=== PATIENT | female | born 1995 ===

== ENCOUNTER 2018-01-17 13:07 | Emergency (ER) | payer OTHER ==
[2018-01-17 13:56] LABS: HCG Qualitative,Urine Negative (Negative)
[2018-01-17 13:57] LABS: Bacteria,Urine 1+ /HPF (Negative); Bilirubin,Urine NEG (Negative); Blood,Urine NEG (Negative); Color,Urine Yellow (Yellow); Mucus,Urine FEW /HPF; Urobilinogen,Urine < 2.0 mg/dL (<2.0)
--- NOTE | 2018-01-17 16:21 | Emergency Department Report ---
HPI - General Chief Complaint: Urogenital-Female Time Seen by Provider: 01/17/18 16:09 - HPI HPI: Room 33 The patient is a 22-year-old female presenting with chief complaint of abdominal pain and back pain. The patient states she is constant cramping/ pressure pain to the suprapubic region for approximately one month. The patient states she's had a thick white vaginal discharge for several months. Patient denies dysuria. The patient is uncertain if she's had a fever. The patient gives her pain is scored 10/10. The patient states she has not sought medical attention about the above complaints. Location: [See above] Duration: [See above] Quality: [See above] Severity: [See above] Modifying factors: [see above] Context: [see above] Mode of transportation: The patient walked from the [place] [facility] Past Medical Hx - Past Medical History Hx Psychiatric Treatment: Yes (depression, OCD,PTSD,BIPOLAR,SCHIZO-EFFECTIVE- SUICIDE ATTEMPT) Additional medical history: premenstral dysphoric disorder - Surgical History Past Surgical History?: No - Family History Family history: no significant - Social History Smoking Status: Never Smoker Substance Use Type: None - Medications Home Medications: Home Medications Medication Instructions Recorded Confirmed Last Taken Type Ibuprofen [Motrin 800 MG tab] 800 mg PO Q8HR PRN #20 tablet 01/17/18 Unknown Rx Tramadol HCl [Ultram] 50 mg PO Q6H PRN #10 tablet 01/17/18 Unknown Rx metroNIDAZOLE [Flagyl] 500 mg PO Q12HR #20 tab 01/17/18 Unknown Rx ED Review of Systems ROS: Stated complaint: VAGINAL DISCHARGE/PAIN Other details as noted in HPI Constitutional: no symptoms reported Eyes: denies: eye pain ENT: denies: throat pain Respiratory: no symptoms reported Cardiovascular: denies: chest pain Endocrine: no symptoms reported Gastrointestinal: abdominal pain Genitourinary: discharge. denies: dysuria Musculoskeletal: back pain Neurological: headache Physical Exam - Physical Exam Vital Signs: Vital Signs 01/17/18 13:13 Temperature 98.9 F Pulse Rate 93 H Respiratory 18 Rate Blood Pressure 135/77 O2 Sat by Pulse 100 Oximetry Physical Exam: GENERAL: The patient is well-developed well-nourished female lying on stretcher not appearing to be in acute distress. [] HEENT: Normocephalic. Atraumatic. Extraocular motions are intact. Patient has moist mucous membranes. NECK: Supple. Trachea midline CHEST/LUNGS: Clear to auscultation. There is no respiratory distress noted. HEART/CARDIOVASCULAR: Regular. There is no tachycardia. There is no gallop rub or murmur. ABDOMEN: Abdomen is soft, with mild discomfort diffusely to palpation but greatest in the suprapubic region. Patient has normal bowel sounds. There is no abdominal distention. SKIN: There is no rash. There is no edema. There is no diaphoresis. NEURO: The patient is awake, alert, and oriented. The patient is cooperative. The patient has normal speech MUSCULOSKELETAL: There is no evidence of acute injury. PELVIC: Patient has history of PTSD and request a female to perform the pelvic exam. Pelvic exam was performed by Diane Flores as she reports there was copious thick white vaginal discharge with fishy odor. Cervical os is closed ED Course Vital Signs 01/17/18 13:13 Temperature 98.9 F Pulse Rate 93 H Respiratory 18 Rate Blood Pressure 135/77 O2 Sat by Pulse 100 Oximetry ED Medical Decision Making - Lab Data Result diagrams: 01/17/18 16:19 01/17/18 16:19 Laboratory Tests 01/17/18 01/17/18 01/17/18 13:33 16:19 16:19 WBC 6.8 RBC 4.55 Hgb 12.5 Hct 38.7 MCV 85 MCH 27 L MCHC 32 RDW 14.1 Plt Count 294 Lymph % (Auto) 19.2 Keith % (Auto) 3.4 Eos % (Auto) 0.2 Baso % (Auto) 0.3 Lymph # 1.3 Keith # 0.2 Eos # 0.0 Baso # 0.0 Seg Neutrophils % 76.9 H Seg Neutrophils # 5.2 Sodium 140 Potassium 3.5 L Chloride 104.2 Carbon Dioxide 24 Anion Gap 15 BUN 5 L Creatinine 0.6 L Estimated GFR > 60 BUN/Creatinine Ratio 8 Glucose 84 Calcium 9.8 Total Bilirubin 0.30 AST 17 ALT 8 Alkaline Phosphatase 62 Total Protein 7.4 Albumin 4.5 Albumin/Globulin Ratio 1.6 Lipase 24 Urine Color Yellow Urine Turbidity Slightly-cloudy Urine pH 7.0 Ur Specific [place] 1.009 Urine Protein 100 mg/dl Urine Glucose (UA) Neg Urine Ketones Neg Urine Blood Neg Urine Nitrite Neg Ur Reducing Substances Not Reportable Urine Bilirubin Neg Urine Ictotest Not Reportable Urine Urobilinogen < 2.0 Ur Leukocyte Esterase Neg Urine WBC (Auto) 3.0 Urine RBC (Auto) 5.0 U Epithel Cells (Auto) 5.0 Urine Bacteria (Auto) 1+ Urine Mucus Few Urine HCG, Qual Negative Wet prep- greater than 20% clue cells, no Trichomonas, no yeast - Differential Diagnosis UTI, vaginitis, urethritis, bacterial vaginosis Critical care attestation.: If time is entered above; I have spent that time in minutes in the direct care of this critically ill patient, excluding procedure time. ED Disposition Clinical Impression: Abdominal pain, Bacterial vaginosis Disposition: TO HOME OR SELFCARE Is pt being admited?: No Does the pt Need Aspirin: No Condition: Stable Instructions: Bacterial Vaginosis (ED) Additional Instructions: Return to the emergency department immediately should you develop worsening symptoms, fever, inability to tolerate food or liquid or any other concerns. Prescriptions: Ibuprofen [Motrin 800 MG tab] 800 mg PO Q8HR PRN #20 tablet PRN Reason: Pain, Moderate (4-6) metroNIDAZOLE [Flagyl] 500 mg PO Q12HR #20 tab Tramadol HCl [Ultram] 50 mg PO Q6H PRN #10 tablet PRN Reason: Pain , Severe (7-10) Referrals: PRIMARY CARE, [Primary Care Provider] - 3-5 Days Forms: STI Treatment and Prevention Time of Disposition: 19:11
[2018-01-17 17:02] LABS: Basophils % (Auto) 0.3 % (0.0-1.8); Eosinophils % (Auto) 0.2 % (0.0-4.3); Hematocrit 38.7 % (30.3-42.9); Hemoglobin 12.5 gm/dl (10.1-14.3); Lymphocytes # (Auto) 1.3 K/mm3 (1.2-5.4); Lymphocytes % (Auto) 19.2 % (13.4-35.0); Mean Corpuscular HGB Conc 32 % (30-34); Mean Corpuscular Hemoglobin 27 pg (28-32); Mean Corpuscular Volume 85 fl (79-97); Monocytes # (Auto) 0.2 K/mm3 (0.0-0.8); Monocytes % (Auto) 3.4 % (0.0-7.3); Platelet Count 294 K/mm3 (140-440); Red Blood Count 4.55 M/mm3 (3.65-5.03); Red Cell Distribution Width 14.1 % (13.2-15.2)
[2018-01-17 17:30] LABS: Alanine Aminotransferase 8 units/L (7-56); Albumin 4.5 g/dL (3.9-5); BUN/Creatinine Ratio 8; Blood Urea Nitrogen 5 mg/dL (7-17); Calcium 9.8 mg/dL (8.4-10.2); Hemolysis Index 13; Lipase 24 units/L (13-60)
[2018-01-17 19:20] VITALS: BP 128/89
== END 2018-01-17 19:21 | disposition home or self-care (01) ==
LOC: ED 13:07
DX: N76.0 Acute vaginitis (principal); F32.9 Major depressive disorder, single episode, unspecified; F31.9 Bipolar disorder, unspecified; F20.9 Schizophrenia, unspecified; F43.10 Post-traumatic stress disorder, unspecified
CPT/HCPCS: 36415; 80053; 81001; 81025; 83690; 85025; 87210; 87591